=== PATIENT | female | born 1975 | race Caucasian/White ===

== ENCOUNTER → 2016-12-21 | Outpatient (CLI) | payer BC ==
[~2016-12-21] MED LIST: FLEXERIL PO; IBUPROFEN PO; IMODIUM A-D2 M1 PO; PHENERGAN25 M1 DOB; TYLENOL #3 PO
--- NOTE | ~2016-12-21 | US6 ---
[facility]. [facility] A Service of [facility] & [facility] RADIOLOGY TEXT RESULTS PATIENT: VANDANA PEREZ LOCATION: [facility]US : 71 UNIT #: [id number] AGE: [address]: MELCHOR FERNANDEZ APRN SEX: F ORDER DR: [id number] [address] [address] [id number] O MR#: [id number] Acc #: [id number] NAME: VANDANA PEREZ : 1975 SEX: F STUDY DATE/TIME: 12/21/2016 13:10 UNIT: [facility] ROOM: STUDY DESCRIPTION: US Abdominal Limited Attending Physician: Melchor Fernandez Aprn Referring Physician: Melchor Fernandez Aprn Ordering Physician: Melchor Fernandez Aprn Primary Care Physician: David Tilley M.D. MEDICAL IMAGING REPORT This report is preliminary unless electronic signature is present. EXAM Right upper quadrant ultrasound 12/21/2016 HISTORY Right upper quadrant abdominal pain for 3 months. No known injury. FINDINGS The liver demonstrates an increase in echotexture with attenuation of the ultrasound beam characteristic of fatty infiltration. No cystic or solid mass lesions were seen in the liver. The intra and extrahepatic bile ducts are not dilated. The gallbladder is normal with no evidence of cholelithiasis, wall thickening or pericholecystic fluid. The common duct measures 2 mm. The pancreas is poorly visualized due to overlying bowel gas. The right kidney is normal. IMPRESSION 1. Fatty infiltration of the liver. 2. Normal gallbladder. 3. Poor visualization of the pancreas due to overlying bowel gas Dictated by... Tyrone Medina M.D. THIS IS AN ELECTRONICALLY VERIFIED REPORT Tyrone Medina M.D. at 12/22/2016 10:23 AM SAMREEN/maria g TD: 12/21/2016 19:39 JOB #: [id number] MEDICAL IMAGING REPORT Page 1 of 1
== END | disposition home or self-care (01) ==
LOC: SGUS 12:38
DX: R10.11 Right upper quadrant pain (principal); K76.0 Fatty (change of) liver, not elsewhere classified
CPT/HCPCS: 76705